=== PATIENT | male | born 1940 ===

== ENCOUNTER 2021-04-28 15:40 | Inpatient (IN) ==
[2021-04-28] MEDS: Mometasone/Formoter 100/5 MDI INH SCH (20:22)
[2021-04-29 06:15] LABS: ABS Eosinophils 0.2 10^3/ul (0-0.6); ABS Lymphocytes 1.2 10^3/ul (1.0-4.8); ABS Monocytes 0.8 10^3/ul (0-0.8); ABS Neutrophils 5.2 10^3/ul (1.5-7.7); Eosinophil % 3.2 %; Hematocrit 38 % (42-52); Hemoglobin 13.3 g/dL (14.0-18.0); Lymphocyte % 16.4 %; Mean Corpuscular HGB Conc 35 g/dL (31-36); Mean Corpuscular Hemoglobin 30 pg (27-31); Mean Corpuscular Volume 87 fL (80-94); Platelet Count 284 10^3/uL (150-450); Red Blood Count 4.43 10^6 /uL (4.18-5.48); Red Cell Distribution Width 13 % (10-15); White Blood Count 7.5 10^3/uL (3.5-10.8)
[2021-04-29 06:34] LABS: Calcium 9.4 mg/dL (8.6-10.3); EGFR African American 97.5 (>60); EGFR Non-African American 80.6 (>60); HDL Cholesterol 31.7 mg/dL; Potassium 4.2 mmol/L (3.5-5.0)
[2021-04-29] MEDS: Mometasone/Formoter 100/5 MDI INH SCH ×2 (08:00→20:11)
[2021-04-29] MEDS ORDERED: NS 0.9% 500 ml BAG 500 ML IV ONE (12:37)
[2021-04-29] MEDS ORDERED: NS 0.9% 1000 ml BAG 1,000 ML IV SCH (12:45)
[2021-04-29 14:50] LABS: ABS Basophils 0.1 10^3/ul (0-0.2); ABS Eosinophils 0.2 10^3/ul (0-0.6); ABS Lymphocytes 1.1 10^3/ul (1.0-4.8); ABS Neutrophils 6.7 10^3/ul (1.5-7.7); Eosinophil % 1.8 %; Hematocrit 39 % (42-52); Hemoglobin 13.6 g/dL (14.0-18.0); Mean Corpuscular HGB Conc 35 g/dL (31-36); Mean Corpuscular Hemoglobin 30 pg (27-31); Mean Corpuscular Volume 87 fL (80-94); Mean Platelet Volume 7.8 fL (7.4-10.4); Platelet Count 294 10^3/uL (150-450); Red Blood Count 4.52 10^6 /uL (4.18-5.48); Red Cell Distribution Width 13 % (10-15)
[2021-04-29] MEDS ORDERED: Heparin 5000 UNITS/ML 1 mL VIAL IV SCH (15:00)
[2021-04-29 15:05] LABS: EGFR African American 93.9 (>60); EGFR Non-African American 77.6 (>60)
[2021-04-29] MEDS: Heparin DRIP 25,000 UNITS BAG 25,000 UNITS/500 ML BAG IV SCH (19:10)
[2021-04-30 03:14] LABS: ABS Basophils 0.1 10^3/ul (0-0.2); ABS Eosinophils 0.3 10^3/ul (0-0.6); ABS Lymphocytes 1.8 10^3/ul (1.0-4.8); ABS Monocytes 0.8 10^3/ul (0-0.8); Eosinophil % 3.2 %; Hematocrit 37 % (42-52); Hemoglobin 12.6 g/dL (14.0-18.0); Lymphocyte % 22.5 %; Mean Corpuscular HGB Conc 34 g/dL (31-36); Mean Corpuscular Hemoglobin 30 pg (27-31); Mean Corpuscular Volume 87 fL (80-94); Mean Platelet Volume 7.6 fL (7.4-10.4); Platelet Count 251 10^3/uL (150-450); Red Blood Count 4.21 10^6 /uL (4.18-5.48); Red Cell Distribution Width 13 % (10-15); White Blood Count 7.9 10^3/uL (3.5-10.8)
[2021-04-30] MEDS: Mometasone/Formoter 100/5 MDI INH SCH ×2 (07:57→19:14)
[2021-04-30] MEDS: Polyethylene Glycol 3350 17 GM PACKET PO PRN (14:10)
[2021-04-30] MEDS: Heparin DRIP 25,000 UNITS BAG 25,000 UNITS/500 ML BAG IV SCH (15:40)
[2021-05-01 05:57] LABS: ABS Basophils 0.1 10^3/ul (0-0.2); ABS Eosinophils 0.3 10^3/ul (0-0.6); ABS Lymphocytes 1.5 10^3/ul (1.0-4.8); ABS Monocytes 0.8 10^3/ul (0-0.8); ABS Neutrophils 4.9 10^3/ul (1.5-7.7); Eosinophil % 3.9 %; Hematocrit 36 % (42-52); Hemoglobin 12.8 g/dL (14.0-18.0); Lymphocyte % 20.1 %; Mean Corpuscular HGB Conc 36 g/dL (31-36); Mean Corpuscular Hemoglobin 31 pg (27-31); Mean Corpuscular Volume 86 fL (80-94); Mean Platelet Volume 8.2 fL (7.4-10.4); Nucleated Red Blood Cells % 0.1; Platelet Count 247 10^3/uL (150-450); Red Blood Count 4.19 10^6 /uL (4.18-5.48); Red Cell Distribution Width 13 % (10-15); White Blood Count 7.6 10^3/uL (3.5-10.8)
[2021-05-01 06:14] LABS: EGFR African American 96.3 (>60); EGFR Non-African American 79.6 (>60)
[2021-05-01] MEDS: Mometasone/Formoter 100/5 MDI INH SCH ×2 (07:28→19:45)
[2021-05-02 05:28] LABS: ABS Basophils 0.1 10^3/ul (0-0.2); ABS Eosinophils 0.3 10^3/ul (0-0.6); ABS Lymphocytes 1.6 10^3/ul (1.0-4.8); ABS Neutrophils 5.8 10^3/ul (1.5-7.7); Eosinophil % 3.4 %; Hematocrit 41 % (42-52); Hemoglobin 14.2 g/dL (14.0-18.0); Mean Corpuscular HGB Conc 35 g/dL (31-36); Mean Corpuscular Hemoglobin 30 pg (27-31); Mean Corpuscular Volume 87 fL (80-94); Mean Platelet Volume 7.5 fL (7.4-10.4); Nucleated Red Blood Cells % 0.1; Platelet Count 284 10^3/uL (150-450); Red Blood Count 4.69 10^6 /uL (4.18-5.48); Red Cell Distribution Width 13 % (10-15); White Blood Count 8.8 10^3/uL (3.5-10.8)
[2021-05-02 05:58] LABS: Calcium 9.5 mg/dL (8.6-10.3); EGFR African American 88.5 (>60); EGFR Non-African American 73.1 (>60); Potassium 4.6 mmol/L (3.5-5.0)
[2021-05-02] MEDS ORDERED: Perflutren Lipid Microsphere 3 ML VIAL ONE (07:57)
[2021-05-02] MEDS: Polyethylene Glycol 3350 17 GM PACKET PO PRN (08:22)
[2021-05-02] MEDS: Mometasone/Formoter 100/5 MDI INH SCH (09:10)
[2021-05-02 18:36] VITALS: BP 154/58
== END 2021-05-02 19:35 | disposition home or self-care (01) | DRG 66 ==
LOC: INTOOBSV 17:31 → SUATTDRO 17:31 → MEDTELE 17:31 → SUATTDRO 04-29 16:48
PROVIDERS: ADMIT Internal Medicine; ATTEND Internal Medicine